=== PATIENT | male | born 1985 | race Hispanic/Latino ===

== ENCOUNTER 2017-08-18 14:27 | Emergency (ER) | payer OTHER | END 2017-08-18 15:06 | disposition home or self-care (01) | LOC: EDH 14:27 | DX: F41.9 Anxiety disorder, unspecified (principal); F14.10 Cocaine abuse, uncomplicated; F10.10 Alcohol abuse, uncomplicated; E86.0 Dehydration; Z72.0 Tobacco use ==

== ENCOUNTER 2018-04-11 07:01 | Emergency (ER) | payer SELFPAY ==
[2018-04-11] MEDS ORDERED: THIAMINE HCL 100 MG/ML 2ML VIAL ONE (07:44)
[2018-04-11] MEDS ORDERED: SODIUM CHLORIDE 0.9% 1000ML 1,000 ML IV ONE (07:44)
[2018-04-11 07:47] LABS: BASOPHILS % (AUTO) 0.2 % (0.0-5.0); EOSINOPHILS % (AUTO) 0.5 % (0.0-8.0); HEMATOCRIT 43.6 % (42-54); LYMPHOCYTES % (AUTO) 16.7 % (21.0-51.0); MEAN CORPUSCULAR HEMOGLOBIN 31.6 pg (27.0-33.0); MEAN CORPUSCULAR HGB CONC 34.5 g/dL (32.0-36.0); MEAN CORPUSCULAR VOLUME 91.7 fL (79-99); MONOCYTES % (AUTO) 6.4 % (3.0-13.0); NEUTROPHILS % (AUTO) 76.2 % (40.0-77.0); PLATELET COUNT (AUTO) 203 K/uL (130-400); RED BLOOD CELL COUNT(AUTO) 4.76 MIL/uL (4.50-6.20); RED CELL DISTRIBUTION WIDTH 13.5 % (11.0-15.5); WHITE BLOOD COUNT (AUTO) 6.4 K/uL (4.8-10.8)
[2018-04-11 08:05] LABS: INR 1.02 (0.85-1.15); PARTIAL THROMBOPLASTIN TIME 29.3 SEC (26.3-35.5); PROTHROMBIN TIME 10.7 SEC (9.6-11.6)
[2018-04-11 08:23] LABS: BILIRUBIN,URINE Negative (NEGATIVE); COLOR,URINE Dark Yellow (YELLOW); GLUCOSE, URINE (UA) Negative (NEGATIVE); KETONES,URINE 40 mg/dL (NEGATIVE); LEUKOCYTE ESTERASE ,URINE Negative (NEGATIVE); NITRATE,URINE Negative (NEGATIVE); OCCULT BLOOD,URINE Negative (NEGATIVE); PROTEIN,URINE Negative (NEGATIVE)
[2018-04-11 08:35] LABS: APPEARANCE,URINE HAZY (CLEAR)
[2018-04-11 08:37] LABS: BACTERIA,URINE Rare /HPF (None Seen); MUCUS,URINE Rare LPF (None Seen); RBC,URINE 0-1 /HPF (0-1); SQUAMOUS EPITHELIAL CELL,UR Rare /HPF (0-2); WBC,URINE 0-1 /HPF (0-1)
[2018-04-11 08:39] LABS: AMPHET/METH SCREEN,URINE NEGATIVE (NEGATIVE); BARBITURATE SCREEN, URINE NEGATIVE (NEGATIVE); BENZODIAZEPINES SCREEN,URINE NEGATIVE (NEGATIVE); CANNABINOID SCREEN,URINE POSITIVE (NEGATIVE); COCAINE SCREEN,URINE POSITIVE (NEGATIVE); OPIATE SCREEN,URINE NEGATIVE (NEGATIVE); PHENCYCLIDINE SCREEN,URINE NEGATIVE (NEGATIVE)
[2018-04-11 08:51] LABS: CARBON DIOXIDE 25 mmol/L (21-32); CHLORIDE 102 mmol/L (101-111); CREATININE 0.9 mg/dL (0.5-1.5); GLOMERULAR FILTR. RATE CALC 104 mL/min (>60); GLUCOSE,RANDOM 80 mg/dL (70-105); SODIUM SERUM 139 mmol/L (136-145); UREA NITROGEN, BLOOD 14 mg/dL (7-18)
[2018-04-11 09:04] LABS: ALANINE AMINOTRANSFERASE 23 U/L (12-78); ALBUMIN 4.3 g/dL (3.5-5.0); ALCOHOL, BLOOD < 3 mg/dL (0-10); ASPARTATE AMINOTRANSFERASE 24 U/L (10-37); BILIRUBIN,TOTAL 1.1 mg/dL (0.2-1.0); CREATINE KINASE, TOTAL 184 U/L (21-232); TOTAL PROTEIN, SERUM 7.5 g/dL (6.0-8.3)
[2018-04-11 09:06] LABS: ACETAMINOPHEN < 1 mcg/mL (10-29); SALICYLATE < 2.8 mg/dL (2.8-20.0)
== END 2018-04-11 10:16 | disposition home or self-care (01) ==
LOC: EDH 07:01
DX: F14.10 Cocaine abuse, uncomplicated (principal); R00.2 Palpitations; F12.10 Cannabis abuse, uncomplicated; F10.10 Alcohol abuse, uncomplicated; F41.9 Anxiety disorder, unspecified; Z72.0 Tobacco use; Y90.9 Presence of alcohol in blood, level not specified
CPT/HCPCS: 36415; 71045; 80053; 80305; 81001; 82550; 84484 ×2; 85025; 85610; 85730; 93005 ×2; 96365; 99284; G0480 ×2; G0481; J3411; J7030

== ENCOUNTER 2018-04-12 11:27 | Emergency (ER) | payer SELFPAY | END 2018-04-12 12:28 | disposition home or self-care (01) | LOC: EDH 11:27 | DX: R06.02 Shortness of breath (principal); T40.4X5D Adverse effect of other synthetic narcotics, subsequent encounter; F41.9 Anxiety disorder, unspecified; F14.10 Cocaine abuse, uncomplicated; Z72.0 Tobacco use | CPT/HCPCS: 99281 ==

== ENCOUNTER 2018-04-14 05:47 | Emergency (ER) | payer SELFPAY ==
[2018-04-14 06:12] LABS: APPEARANCE,URINE Clear (CLEAR); BILIRUBIN,URINE Negative (NEGATIVE); COLOR,URINE Yellow (YELLOW); GLUCOSE, URINE (UA) Negative (NEGATIVE); KETONES,URINE Negative (NEGATIVE); LEUKOCYTE ESTERASE ,URINE Negative (NEGATIVE); NITRATE,URINE Negative (NEGATIVE); OCCULT BLOOD,URINE Negative (NEGATIVE); PH,URINE 5.5 (5.0-8.0); PROTEIN,URINE Negative (NEGATIVE)
[2018-04-14 06:20] LABS: AMPHET/METH SCREEN,URINE NEGATIVE (NEGATIVE); BARBITURATE SCREEN, URINE NEGATIVE (NEGATIVE); BENZODIAZEPINES SCREEN,URINE NEGATIVE (NEGATIVE); CANNABINOID SCREEN,URINE POSITIVE (NEGATIVE); COCAINE SCREEN,URINE POSITIVE (NEGATIVE); OPIATE SCREEN,URINE NEGATIVE (NEGATIVE); PHENCYCLIDINE SCREEN,URINE NEGATIVE (NEGATIVE)
[2018-04-14 06:42] LABS: BASOPHILS % (AUTO) 0.7 % (0.0-5.0); EOSINOPHILS % (AUTO) 1.4 % (0.0-8.0); HEMATOCRIT 42.8 % (42-54); LYMPHOCYTES % (AUTO) 26.6 % (21.0-51.0); MEAN CORPUSCULAR HEMOGLOBIN 31.2 pg (27.0-33.0); MEAN CORPUSCULAR VOLUME 91.9 fL (79-99); MONOCYTES % (AUTO) 10.9 % (3.0-13.0); NEUTROPHILS % (AUTO) 60.4 % (40.0-77.0); PLATELET COUNT (AUTO) 272 K/uL (130-400); RED BLOOD CELL COUNT(AUTO) 4.66 MIL/uL (4.50-6.20); RED CELL DISTRIBUTION WIDTH 13.3 % (11.0-15.5); WHITE BLOOD COUNT (AUTO) 6.8 K/uL (4.8-10.8)
[2018-04-14 06:50] LABS: CREATININE 0.9 mg/dL (0.5-1.5); POTASSIUM 3.7 mmol/L (3.5-5.1)
[2018-04-14 06:56] LABS: ALBUMIN 4.3 g/dL (3.5-5.0); BILIRUBIN,TOTAL 0.7 mg/dL (0.2-1.0); TOTAL PROTEIN, SERUM 7.3 g/dL (6.0-8.3)
[2018-04-14] MEDS ORDERED: LORAZEPAM 0.5 MG TABLET ONE (07:39)
== END 2018-04-14 07:59 | disposition home or self-care (01) ==
LOC: EDH 05:47
DX: F41.0 Panic disorder [episodic paroxysmal anxiety] (principal); F14.10 Cocaine abuse, uncomplicated; F12.10 Cannabis abuse, uncomplicated; R06.02 Shortness of breath; Z72.0 Tobacco use
CPT/HCPCS: 36415; 71045; 80053; 80305; 81003; 82550; 84484; 85025; 93005

== ENCOUNTER 2018-04-15 08:09 | Emergency (ER) | payer SELFPAY | END 2018-04-15 09:44 | disposition home or self-care (01) | LOC: EDH 08:09 | DX: F41.9 Anxiety disorder, unspecified (principal); F14.10 Cocaine abuse, uncomplicated; F12.90 Cannabis use, unspecified, uncomplicated | CPT/HCPCS: 93005 ==

== ENCOUNTER 2018-04-16 09:52 | Emergency (ER) | payer SELFPAY ==
[2018-04-16 10:15] LABS: BASOPHILS % (AUTO) 0.4 % (0.0-5.0); EOSINOPHILS % (AUTO) 1.3 % (0.0-8.0); HEMATOCRIT 45.4 % (42-54); LYMPHOCYTES % (AUTO) 22.2 % (21.0-51.0); MEAN CORPUSCULAR HEMOGLOBIN 31.2 pg (27.0-33.0); MEAN CORPUSCULAR HGB CONC 33.7 g/dL (32.0-36.0); MEAN CORPUSCULAR VOLUME 92.6 fL (79-99); MONOCYTES % (AUTO) 8.5 % (3.0-13.0); NEUTROPHILS % (AUTO) 67.6 % (40.0-77.0); NUCLEATED RED BLOOD CELLS 0.1 % (0.0-0.19); PLATELET COUNT (AUTO) 259 K/uL (130-400); RED CELL DISTRIBUTION WIDTH 13.7 % (11.0-15.5); WHITE BLOOD COUNT (AUTO) 6.8 K/uL (4.8-10.8)
[2018-04-16 10:26] LABS: CREATININE 0.9 mg/dL (0.5-1.5); POTASSIUM 3.5 mmol/L (3.5-5.1)
[2018-04-16 10:31] LABS: ALBUMIN 4.1 g/dL (3.5-5.0); BILIRUBIN,TOTAL 0.8 mg/dL (0.2-1.0)
[2018-04-16] MEDS ORDERED: SODIUM CHLORIDE 0.9% 1000ML 1,000 ML IV ONE (10:46)
== END 2018-04-16 12:44 | disposition home or self-care (01) ==
LOC: EDH 09:52
DX: F41.0 Panic disorder [episodic paroxysmal anxiety] (principal); F14.10 Cocaine abuse, uncomplicated; F12.10 Cannabis abuse, uncomplicated; Z72.0 Tobacco use
CPT/HCPCS: 36415; 71045; 80053; 83880; 84484; 85025; 85378; 93005; 99284; J7030

== ENCOUNTER 2018-04-17 12:06 | Emergency (ER) | payer OTHER | END 2018-04-17 13:31 | disposition home or self-care (01) | LOC: EDH 12:06 | DX: F41.1 Generalized anxiety disorder (principal); F14.10 Cocaine abuse, uncomplicated; F12.90 Cannabis use, unspecified, uncomplicated; Z98.890 Other specified postprocedural states ==

== ENCOUNTER 2018-04-22 15:53 | Emergency (ER) | payer SELFPAY ==
[2018-04-22] MEDS ORDERED: HYDROXYZINE HCL 25 MG TABLET ONE (17:22)
[2018-04-22] MEDS ORDERED: ASPIRIN 325 MG TABLET ONE (17:22)
[2018-04-22 17:39] LABS: BASOPHILS % (AUTO) 0.5 % (0.0-5.0); EOSINOPHILS % (AUTO) 0.4 % (0.0-8.0); HEMATOCRIT 39.5 % (42-54); LYMPHOCYTES % (AUTO) 20.6 % (21.0-51.0); MEAN CORPUSCULAR HEMOGLOBIN 31.4 pg (27.0-33.0); MEAN CORPUSCULAR HGB CONC 34.3 g/dL (32.0-36.0); MEAN CORPUSCULAR VOLUME 91.7 fL (79-99); NEUTROPHILS % (AUTO) 69.5 % (40.0-77.0); PLATELET COUNT (AUTO) 239 K/uL (130-400); RED BLOOD CELL COUNT(AUTO) 4.31 MIL/uL (4.50-6.20); RED CELL DISTRIBUTION WIDTH 13.6 % (11.0-15.5); WHITE BLOOD COUNT (AUTO) 7.3 K/uL (4.8-10.8)
[2018-04-22 17:48] LABS: AMPHET/METH SCREEN,URINE NEGATIVE (NEGATIVE); BARBITURATE SCREEN, URINE NEGATIVE (NEGATIVE); BENZODIAZEPINES SCREEN,URINE NEGATIVE (NEGATIVE); CANNABINOID SCREEN,URINE NEGATIVE (NEGATIVE); COCAINE SCREEN,URINE POSITIVE (NEGATIVE); OPIATE SCREEN,URINE NEGATIVE (NEGATIVE); PHENCYCLIDINE SCREEN,URINE NEGATIVE (NEGATIVE)
[2018-04-22 17:54] LABS: CREATININE 0.8 mg/dL (0.5-1.5); POTASSIUM 3.9 mmol/L (3.5-5.1)
[2018-04-22 17:56] LABS: INR 1.04 (0.85-1.15); PARTIAL THROMBOPLASTIN TIME 28.1 SEC (26.3-35.5); PROTHROMBIN TIME 10.9 SEC (9.6-11.6)
[2018-04-22 18:04] LABS: ALBUMIN 4.2 g/dL (3.5-5.0); BILIRUBIN,TOTAL 0.4 mg/dL (0.2-1.0)
[2018-04-22 18:18] LABS: B-TYPE NATRIURETIC PEPTIDE 257 pg/mL (0-100)
== END 2018-04-22 19:19 | disposition home or self-care (01) ==
LOC: EDH 15:53
DX: F41.1 Generalized anxiety disorder (principal); F14.10 Cocaine abuse, uncomplicated; R07.9 Chest pain, unspecified; F12.10 Cannabis abuse, uncomplicated
CPT/HCPCS: 36415; 71045; 80053; 80305; 82550; 83874; 83880; 84484; 85025; 85610; 85730; 93005

== ENCOUNTER 2018-07-02 15:50 | Inpatient (IN) | payer SELFPAY ==
[~2018-07-02] VITALS: Ht 160 cm; Wt 51.7 kg
[2018-07-02] MEDS ORDERED: SODIUM CHLORIDE 0.9% 1000ML 1,000 ML IV ONE (16:04)
[2018-07-02 16:22] LABS: BASOPHILS % (AUTO) 0.4 % (0.0-5.0); HEMATOCRIT 42.4 % (42-54); MEAN CORPUSCULAR HEMOGLOBIN 32.6 pg (27.0-33.0); MEAN CORPUSCULAR VOLUME 93.2 fL (79-99); MONOCYTES % (AUTO) 7.1 % (3.0-13.0); NEUTROPHILS % (AUTO) 79.5 % (40.0-77.0); NUCLEATED RED BLOOD CELLS 0.1 % (0.0-0.19); PLATELET COUNT (AUTO) 196 K/uL (130-400); RED BLOOD CELL COUNT(AUTO) 4.55 MIL/uL (4.50-6.20); RED CELL DISTRIBUTION WIDTH 13.5 % (11.0-15.5); WHITE BLOOD COUNT (AUTO) 9.5 K/uL (4.8-10.8)
[2018-07-02 16:24] LABS: APPEARANCE,URINE Clear (CLEAR); BILIRUBIN,URINE Negative (NEGATIVE); COLOR,URINE Yellow (YELLOW); GLUCOSE, URINE (UA) Negative (NEGATIVE); KETONES,URINE 15 mg/dL (NEGATIVE); LEUKOCYTE ESTERASE ,URINE Negative (NEGATIVE); NITRATE,URINE Negative (NEGATIVE); OCCULT BLOOD,URINE Negative (NEGATIVE); PROTEIN,URINE Negative (NEGATIVE)
[2018-07-02 16:34] LABS: POTASSIUM 3.6 mmol/L (3.5-5.1)
[2018-07-02 16:35] LABS: INR 1.01 (0.85-1.15); PARTIAL THROMBOPLASTIN TIME 28.3 SEC (26.3-35.5); PROTHROMBIN TIME 10.6 SEC (9.6-11.6)
[2018-07-02 16:38] LABS: ALBUMIN 4.4 g/dL (3.5-5.0); TOTAL PROTEIN, SERUM 7.4 g/dL (6.0-8.3)
[2018-07-02 16:49] LABS: AMPHET/METH SCREEN,URINE NEGATIVE (NEGATIVE); BARBITURATE SCREEN, URINE NEGATIVE (NEGATIVE); BENZODIAZEPINES SCREEN,URINE NEGATIVE (NEGATIVE); CANNABINOID SCREEN,URINE POSITIVE (NEGATIVE); COCAINE SCREEN,URINE POSITIVE (NEGATIVE); OPIATE SCREEN,URINE NEGATIVE (NEGATIVE); PHENCYCLIDINE SCREEN,URINE NEGATIVE (NEGATIVE)
[2018-07-02 20:46] VITALS: BP 128/82
[2018-07-02] MEDS: METOPROLOL TARTRATE 25 MG TAB PO SCH (21:16)
[2018-07-02] MEDS: FAMOTIDINE 20MG TAB 20 MG TAB PO SCH (21:16)
[2018-07-02] MEDS: ACETAMINOPHEN 325 MG TAB PO PRN (21:19)
[2018-07-02 23:34] VITALS: BP 129/86
[2018-07-03 03:20] VITALS: BP 141/67
[2018-07-03 07:54] VITALS: BP 122/77
[2018-07-03] MEDS: ASPIRIN 325 MG TABLET PO SCH (08:23)
[2018-07-03] MEDS: METOPROLOL TARTRATE 25 MG TAB PO SCH (08:23)
[2018-07-03] MEDS: FAMOTIDINE 20MG TAB 20 MG TAB PO SCH ×2 (08:23→20:55)
[2018-07-03] MEDS: ENOXAPARIN SODIUM 40 MG/0.4 ML SYRINGE SQ SCH (08:23)
[2018-07-03] MEDS ORDERED: DILTIAZEM HCL 60 MG TABLET PO SCH (10:30)
[2018-07-03] MEDS ORDERED: ONDANSETRON HCL 4 MG/2 ML VIAL IVP PRN (10:30)
[2018-07-03 11:56] VITALS: BP 133/83
[2018-07-03 16:00] VITALS: BP 121/81
--- NOTE | 2018-07-03 19:28 | NUR ---
cm note met with patient and states resides athome alone, independent with adls and self care, ambulation. no dme. no services. pt does not have pcp, provided list of low income clinics in the area and encouraged md followup and adherance to diet and healthy living, pt states he will follwoup with clinics. also has spoken to [employer] for possible medicaid assist. no dc needs. dc plan is [place]. Addendum: 07/03/18 at 1930 by LIA GAUTAM CM Amended: Links added.
[2018-07-03 20:00] VITALS: BP 116/70
[2018-07-04] VITALS: BP 112/80
[2018-07-04 03:43] VITALS: BP 128/56
[2018-07-04 05:00] LABS: BASOPHILS % (AUTO) 0.4 % (0.0-5.0); EOSINOPHILS % (AUTO) 1.7 % (0.0-8.0); HEMATOCRIT 55.1 % (42-54); LYMPHOCYTES % (AUTO) 24.7 % (21.0-51.0); MEAN CORPUSCULAR HEMOGLOBIN 32.4 pg (27.0-33.0); MEAN CORPUSCULAR HGB CONC 34.6 g/dL (32.0-36.0); MEAN CORPUSCULAR VOLUME 93.6 fL (79-99); MONOCYTES % (AUTO) 14.7 % (3.0-13.0); NEUTROPHILS % (AUTO) 58.5 % (40.0-77.0); PLATELET COUNT (AUTO) 257 K/uL (130-400); RED BLOOD CELL COUNT(AUTO) 5.88 MIL/uL (4.50-6.20); RED CELL DISTRIBUTION WIDTH 13.6 % (11.0-15.5); WHITE BLOOD COUNT (AUTO) 9.5 K/uL (4.8-10.8)
[2018-07-04 05:14] LABS: CREATININE 1.1 mg/dL (0.5-1.5); POTASSIUM 4.4 mmol/L (3.5-5.1)
[2018-07-04 08:00] VITALS: BP 151/80
--- NOTE | 2018-07-04 08:00 | NUR ---
AM SHIFT ASSESSMENT. NO CHEST PAIN.
[2018-07-04] MEDS: DILTIAZEM HCL 60 MG TABLET PO SCH ×3 (08:43→22:51)
[2018-07-04] MEDS: FAMOTIDINE 20MG TAB 20 MG TAB PO SCH ×2 (08:44→22:51)
[2018-07-04] MEDS: ASPIRIN 325 MG TABLET PO SCH (08:44)
[2018-07-04] MEDS: ENOXAPARIN SODIUM 40 MG/0.4 ML SYRINGE SQ SCH (08:46)
[2018-07-04 12:00] VITALS: BP 114/72
[2018-07-04 16:00] VITALS: BP 120/72
--- NOTE | 2018-07-04 18:00 | NUR ---
CONTINUES WITH SINUS TACHYCARDIA, NO CHEST PAIN AND STATES DOES NOT FEEL BAD. DOES ADMIT TO BE BEING DEPRESSED AND DOES NOT FEEL LIKE ANY OF HIS FAMILY MEMBERS CARE ABOUT HIM.
[2018-07-04 19:46] VITALS: BP 113/66
[2018-07-05] VITALS (7 sets, daily range): BP systolic 82–115; BP diastolic 61–81
[2018-07-05] MEDS: DILTIAZEM HCL 60 MG TABLET PO SCH ×3 (08:23→21:37)
[2018-07-05] MEDS: FAMOTIDINE 20MG TAB 20 MG TAB PO SCH ×2 (08:23→21:36)
[2018-07-05] MEDS: ENOXAPARIN SODIUM 40 MG/0.4 ML SYRINGE SQ SCH (08:25)
[2018-07-05] MEDS: ASPIRIN 325 MG TABLET PO SCH (08:25)
[2018-07-05] MEDS: THIAMINE HCL 100 MG TABLET PO SCH ×2 (11:31→21:36)
--- NOTE | 2018-07-05 13:00 | NUR ---
SPOKE W PT RE COCAINE USE [facility] w [facility]. lives alone, does odd jobs for money- landscape work, etc. has used drugs for many years. is estranged form his family. encouraged to reconnect, go to [facility] if [facility] are inviting him. advised that he need to stop drugs- needs help to stop drugs; admits to being addict. very sad. aware his health/heart has suffered related to drug use. community resource pkt discussed Addendum: 07/05/18 at 1901 by REJI CLINTON RN CM Amended: Links added.
--- NOTE | 2018-07-05 16:58 | NUR ---
DIRECTIVES Sw met with pt and educated on directives and MPOA. Pt states he is not and has 1 minor child. Pt reports both parents still living and they would be decision makers in necessary. Pt states he would want to be resuscitated and be on life support. SW educated on directives and MPOA, pt did not wish to complete
[2018-07-05] MEDS: LORAZEPAM 2 MG/ML 1 ML VIAL IVP PRN (19:26)
[2018-07-05] MEDS ORDERED: MORPHINE SULFATE 4 MG/1ML SYG IV PRN (20:15)
[2018-07-05] MEDS ORDERED: MORPHINE SULFATE 2 MG/ML 1ML SYG IVP PRN (20:15)
[2018-07-05] MEDS: NITROGLYCERIN 1GM/1 INCH PACKET TD SCH (21:38)
[2018-07-06] VITALS: BP 103/62
[2018-07-06 03:59] VITALS: BP 104/70
[2018-07-06] MEDS: ACETAMINOPHEN 325 MG TAB PO PRN (06:09)
[2018-07-06] MEDS: NITROGLYCERIN 1GM/1 INCH PACKET TD SCH (06:10)
[2018-07-06 06:16] LABS: BASOPHILS % (AUTO) 0.5 % (0.0-5.0); EOSINOPHILS % (AUTO) 1.4 % (0.0-8.0); HEMATOCRIT 44.9 % (42-54); LYMPHOCYTES % (AUTO) 22.2 % (21.0-51.0); MEAN CORPUSCULAR HEMOGLOBIN 31.6 pg (27.0-33.0); MEAN CORPUSCULAR HGB CONC 34.1 g/dL (32.0-36.0); MEAN CORPUSCULAR VOLUME 92.5 fL (79-99); NEUTROPHILS % (AUTO) 63.9 % (40.0-77.0); PLATELET COUNT (AUTO) 232 K/uL (130-400); RED BLOOD CELL COUNT(AUTO) 4.85 MIL/uL (4.50-6.20); RED CELL DISTRIBUTION WIDTH 13.7 % (11.0-15.5); WHITE BLOOD COUNT (AUTO) 9.7 K/uL (4.8-10.8)
[2018-07-06 06:36] LABS: POTASSIUM 3.9 mmol/L (3.5-5.1)
[2018-07-06 08:00] VITALS: BP 120/92
[2018-07-06] MEDS: THIAMINE HCL 100 MG TABLET PO SCH ×2 (08:32→21:31)
[2018-07-06] MEDS: ASPIRIN 81MG TAB.CHEW PO SCH (08:32)
[2018-07-06] MEDS: LOSARTAN 50 MG TABLET PO SCH (08:32)
[2018-07-06] MEDS: FAMOTIDINE 20MG TAB 20 MG TAB PO SCH ×2 (08:32→21:31)
[2018-07-06] MEDS: FUROSEMIDE 40 MG TABLET PO SCH (08:32)
[2018-07-06] MEDS: ISOSORBIDE MONO 30MG TAB SR PO SCH (08:33)
[2018-07-06] MEDS: ENOXAPARIN SODIUM 40 MG/0.4 ML SYRINGE SQ SCH (08:34)
[2018-07-06 12:00] VITALS: BP 123/65
[2018-07-06] MEDS: LORAZEPAM 2 MG/ML 1 ML VIAL IVP PRN (14:56)
[2018-07-06 16:00] VITALS: BP_SYST 124; BP_SYST 99; BP_DIAS 55; BP_DIAS 57
[2018-07-06 20:00] VITALS: BP 101/68
[2018-07-07] VITALS: BP 117/72
[2018-07-07 03:55] VITALS: BP 110/74
[2018-07-07 05:18] LABS: BASOPHILS % (AUTO) 0.5 % (0.0-5.0); EOSINOPHILS % (AUTO) 2.4 % (0.0-8.0); HEMATOCRIT 46.1 % (42-54); LYMPHOCYTES % (AUTO) 29.1 % (21.0-51.0); MEAN CORPUSCULAR HEMOGLOBIN 32.5 pg (27.0-33.0); MEAN CORPUSCULAR HGB CONC 34.9 g/dL (32.0-36.0); MEAN CORPUSCULAR VOLUME 93.2 fL (79-99); MONOCYTES % (AUTO) 13.5 % (3.0-13.0); NEUTROPHILS % (AUTO) 54.5 % (40.0-77.0); NUCLEATED RED BLOOD CELLS 0.1 % (0.0-0.19); PLATELET COUNT (AUTO) 198 K/uL (130-400); RED BLOOD CELL COUNT(AUTO) 4.95 MIL/uL (4.50-6.20); RED CELL DISTRIBUTION WIDTH 13.7 % (11.0-15.5); WHITE BLOOD COUNT (AUTO) 6.7 K/uL (4.8-10.8)
[2018-07-07 05:35] LABS: CREATININE 0.9 mg/dL (0.5-1.5); POTASSIUM 3.9 mmol/L (3.5-5.1)
[2018-07-07] MEDS ORDERED: Isosorbide Mono 30MG Tab Sr PO (07:07)
[2018-07-07] MEDS ORDERED: FURO40TA7 PO (07:07)
[2018-07-07] MEDS ORDERED: LOSA50TA2 PO (07:07)
[2018-07-07 08:00] VITALS: BP 115/68
[2018-07-07] MEDS: ASPIRIN 81MG TAB.CHEW PO SCH (09:48)
[2018-07-07] MEDS: ENOXAPARIN SODIUM 40 MG/0.4 ML SYRINGE SQ SCH (09:48)
[2018-07-07] MEDS: ISOSORBIDE MONO 30MG TAB SR PO SCH (09:48)
[2018-07-07] MEDS: FAMOTIDINE 20MG TAB 20 MG TAB PO SCH (09:49)
[2018-07-07] MEDS: FUROSEMIDE 40 MG TABLET PO SCH (09:49)
[2018-07-07] MEDS: LOSARTAN 50 MG TABLET PO SCH (09:49)
[2018-07-07] MEDS: THIAMINE HCL 100 MG TABLET PO SCH (09:51)
[2018-07-07 12:00] VITALS: BP 107/70
[2018-07-07] MEDS ORDERED: METOPROLOL TARTRATE 1 MG/ML 5ML VIAL IV SCH (12:00)
[2018-07-07 16:00] VITALS: BP 109/50
--- NOTE | 2018-07-07 16:55 | NUR ---
SPOKE TO RUBIAN MELENDEZ, HEART RATE 140, WILL HOLD DISCHARGE AND GIVE PT TYLENOL Q6 PRN 650 FOR HEADACHE
[2018-07-07] MEDS ORDERED: ACETAMINOPHEN 325 MG TAB PO PRN (17:00)
[2018-07-07] MEDS: ACETAMINOPHEN 325 MG TAB PO PRN (17:01)
--- NOTE | 2018-07-07 17:13 | NUR ---
SPOKE TO RUBINA, WILL DISCHARGE PT, PT HEART RATE IS GOING DOWN AND NOW 120, PT HAS A BASELINE OF 120'S WILL DISCHARGE
== END 2018-07-07 18:09 | disposition home or self-care (01) | DRG 204 ==
LOC: EDH 15:50 → OBSVTOIN 15:51 → EDHIP 15:51 → 3AH 20:34
PROVIDERS: ADMIT Hospitalist; ATTEND Hospitalist
DX: R06.02 Shortness of breath (principal); I42.0 Dilated cardiomyopathy; R00.0 Tachycardia, unspecified; I10 Essential (primary) hypertension; F14.10 Cocaine abuse, uncomplicated; F17.210 Nicotine dependence, cigarettes, uncomplicated; F12.90 Cannabis use, unspecified, uncomplicated; I25.5 Ischemic cardiomyopathy; I49.3 Ventricular premature depolarization; T40.5X5A Adverse effect of cocaine, initial encounter; Y92.89 Other specified places as the place of occurrence of the external cause; Z91.14 Patient's other noncompliance with medication regimen; Z86.61 Personal history of infections of the central nervous system
CPT/HCPCS: 36415; 71045; 80048; 80053; 80305; 81003; 83880; 84484; 85025; 85610; 85730; 93005; 93306; G0378; J1650; J2060; J3490; J7030

== ENCOUNTER 2018-08-08 17:58 | Emergency (ER) | payer SELFPAY ==
[~2018-08-08 17:58] MED LIST: FURO40TA7 PO; Isosorbide Mono 30MG Tab Sr PO; LOSA50TA2 PO
[2018-08-08] MEDS ORDERED: TETANUS/DIPHTHERIA TOXOID [ADULT] 0.5 ML VIAL IM ONE (18:53)
== END 2018-08-08 19:04 | disposition home or self-care (01) ==
LOC: EDH 17:58
DX: S61.411A Laceration without foreign body of right hand, initial encounter (principal); F41.9 Anxiety disorder, unspecified; F14.10 Cocaine abuse, uncomplicated; F12.10 Cannabis abuse, uncomplicated; Z72.0 Tobacco use; W25.XXXA Contact with sharp glass, initial encounter; Y93.89 Activity, other specified; Y92.098 Other place in other non-institutional residence as the place of occurrence of the external cause; Y99.8 Other external cause status
CPT/HCPCS: 90714; 99281

== ENCOUNTER 2019-01-24 01:55 | Emergency (ER) | payer OTHER ==
[2019-01-24] MEDS ORDERED: HALOPERIDOL LACTATE 5 MG/ML VIAL ONE (02:36)
[2019-01-24] MEDS ORDERED: DiphenhydrAMINE HCL 50 MG/ML VIAL ONE (02:36)
[2019-01-24] MEDS ORDERED: LORAZEPAM 2 MG/ML 1 ML VIAL ONE (02:37)
[2019-01-24 03:15] LABS: AMPHET/METH SCREEN,URINE NEGATIVE (NEGATIVE); BARBITURATE SCREEN, URINE NEGATIVE (NEGATIVE); BENZODIAZEPINES SCREEN,URINE NEGATIVE (NEGATIVE); CANNABINOID SCREEN,URINE NEGATIVE (NEGATIVE); COCAINE SCREEN,URINE POSITIVE (NEGATIVE); OPIATE SCREEN,URINE NEGATIVE (NEGATIVE); PHENCYCLIDINE SCREEN,URINE NEGATIVE (NEGATIVE)
[2019-01-24 03:17] LABS: BASOPHILS % (AUTO) 0.5 % (0.0-5.0); CARBON DIOXIDE 26 mmol/L (21-32); CHLORIDE 105 mmol/L (101-111); GLOMERULAR FILTR. RATE CALC 91 mL/min (>60); GLUCOSE,RANDOM 100 mg/dL (70-105); HEMATOCRIT 45.1 % (42-54); LYMPHOCYTES % (AUTO) 30.6 % (21.0-51.0); MEAN CORPUSCULAR HEMOGLOBIN 31.1 pg (27.0-33.0); MEAN CORPUSCULAR HGB CONC 34.6 g/dL (32.0-36.0); MEAN CORPUSCULAR VOLUME 89.8 fL (79-99); MONOCYTES % (AUTO) 8.8 % (3.0-13.0); PLATELET COUNT (AUTO) 246 K/uL (130-400); POTASSIUM 3.8 mmol/L (3.5-5.1); RED BLOOD CELL COUNT(AUTO) 5.02 MIL/uL (4.50-6.20); RED CELL DISTRIBUTION WIDTH 13.2 % (11.0-15.5); SODIUM SERUM 144 mmol/L (136-145); UREA NITROGEN, BLOOD 13 mg/dL (7-18); WHITE BLOOD COUNT (AUTO) 7.3 K/uL (4.8-10.8)
[2019-01-24 03:22] LABS: ALANINE AMINOTRANSFERASE 20 U/L (12-78); ALBUMIN 4.6 g/dL (3.5-5.0); ASPARTATE AMINOTRANSFERASE 22 U/L (10-37); BILIRUBIN,TOTAL 0.4 mg/dL (0.2-1.0); TOTAL PROTEIN, SERUM 7.7 g/dL (6.0-8.3)
[2019-01-24 03:29] LABS: ACETAMINOPHEN < 1 mcg/mL (10-29); SALICYLATE < 2.8 mg/dL (2.8-20.0)
== END 2019-01-24 05:24 | disposition home or self-care (01) ==
LOC: EDH 01:55
DX: S60.519A Abrasion of unspecified hand, initial encounter (principal); F14.10 Cocaine abuse, uncomplicated; F41.0 Panic disorder [episodic paroxysmal anxiety]; F41.9 Anxiety disorder, unspecified; F12.10 Cannabis abuse, uncomplicated; X58.XXXA Exposure to other specified factors, initial encounter; Y93.89 Activity, other specified; Y92.89 Other specified places as the place of occurrence of the external cause; Y99.8 Other external cause status
CPT/HCPCS: 36415; 73130 ×2; 80053; 80305; 85025; 96372 ×3; 99285; G0480; G0481; J1200; J1630; J2060

== ENCOUNTER 2019-10-30 16:43 | Emergency (ER) | payer SELFPAY ==
[2019-10-30 17:09] LABS: BASOPHILS % (AUTO) 0.4 % (0.0-5.0); EOSINOPHILS % (AUTO) 0.4 % (0.0-8.0); HEMATOCRIT 46.6 % (42-54); LYMPHOCYTES % (AUTO) 13.7 % (21.0-51.0); MEAN CORPUSCULAR HEMOGLOBIN 32.1 pg (27.0-33.0); MEAN CORPUSCULAR VOLUME 91.9 fL (79-99); MONOCYTES % (AUTO) 9.6 % (3.0-13.0); NEUTROPHILS % (AUTO) 75.6 % (40.0-77.0); PLATELET COUNT (AUTO) 259 K/uL (130-400); RED BLOOD CELL COUNT(AUTO) 5.07 MIL/uL (4.50-6.20); RED CELL DISTRIBUTION WIDTH 13.6 % (11.0-15.5); WHITE BLOOD COUNT (AUTO) 9.9 K/uL (4.8-10.8)
[2019-10-30 17:12] LABS: POTASSIUM 4.1 mmol/L (3.5-5.1)
[2019-10-30 17:17] LABS: ALBUMIN 4.4 g/dL (3.5-5.0); BILIRUBIN,TOTAL 1.2 mg/dL (0.2-1.0); TOTAL PROTEIN, SERUM 7.8 g/dL (6.0-8.3)
[2019-10-30] MEDS ORDERED: DiphenhydrAMINE HCL 50 MG/ML VIAL ONE (17:30)
[2019-10-30 18:05] LABS: APPEARANCE,URINE Clear (CLEAR); BILIRUBIN,URINE Negative (NEGATIVE); COLOR,URINE Dark Yellow (YELLOW); GLUCOSE, URINE (UA) Negative (NEGATIVE); KETONES,URINE 40 mg/dL (NEGATIVE); LEUKOCYTE ESTERASE ,URINE Negative (NEGATIVE); NITRATE,URINE Negative (NEGATIVE); OCCULT BLOOD,URINE Negative (NEGATIVE); PROTEIN,URINE Negative (NEGATIVE)
[2019-10-30 18:13] LABS: AMPHET/METH SCREEN,URINE NEGATIVE (NEGATIVE); BARBITURATE SCREEN, URINE NEGATIVE (NEGATIVE); BENZODIAZEPINES SCREEN,URINE NEGATIVE (NEGATIVE); CANNABINOID SCREEN,URINE POSITIVE (NEGATIVE); COCAINE SCREEN,URINE POSITIVE (NEGATIVE); OPIATE SCREEN,URINE NEGATIVE (NEGATIVE); PHENCYCLIDINE SCREEN,URINE NEGATIVE (NEGATIVE)
[2019-10-30 18:25] LABS: BACTERIA,URINE None Seen /HPF (None Seen); MUCUS,URINE Few LPF (None Seen); RBC,URINE 0-1 /HPF (0-1); SQUAMOUS EPITHELIAL CELL,UR 0-2 /HPF (0-2); WBC,URINE 0-1 /HPF (0-1)
== END 2019-10-30 20:54 | disposition home or self-care (01) ==
LOC: EDH 16:43
DX: R07.89 Other chest pain (principal); F12.10 Cannabis abuse, uncomplicated; F14.10 Cocaine abuse, uncomplicated; F41.9 Anxiety disorder, unspecified
CPT/HCPCS: 36415; 71045; 80053; 80305; 81001; 82550; 84484 ×2; 85025; 93005 ×2; 96361; 96374; 99285; J1200

== ENCOUNTER 2019-11-01 10:33 | Emergency (ER) | payer SELFPAY ==
[2019-11-01] MEDS ORDERED: SODIUM CHLORIDE 0.9% 1000ML 1,000 ML IV ONE ×2 (10:34→15:34)
[2019-11-01 11:22] LABS: BASOPHILS % (AUTO) 0.4 % (0.0-5.0); EOSINOPHILS % (AUTO) 0.6 % (0.0-8.0); HEMATOCRIT 45.7 % (42-54); LYMPHOCYTES % (AUTO) 11.3 % (21.0-51.0); MEAN CORPUSCULAR HEMOGLOBIN 31.9 pg (27.0-33.0); MONOCYTES % (AUTO) 9.2 % (3.0-13.0); NEUTROPHILS % (AUTO) 78.3 % (40.0-77.0); PLATELET COUNT (AUTO) 258 K/uL (130-400); RED BLOOD CELL COUNT(AUTO) 5.02 MIL/uL (4.50-6.20); RED CELL DISTRIBUTION WIDTH 13.5 % (11.0-15.5)
[2019-11-01 11:30] LABS: POTASSIUM 3.8 mmol/L (3.5-5.1)
[2019-11-01 11:38] LABS: ALBUMIN 4.5 g/dL (3.5-5.0); BILIRUBIN,TOTAL 0.5 mg/dL (0.2-1.0); TOTAL PROTEIN, SERUM 7.8 g/dL (6.0-8.3)
[2019-11-01] MEDS ORDERED: LORAZEPAM 1 MG TABLET ONE (12:15)
[2019-11-01] MEDS ORDERED: ACETAMINOPHEN 325 MG TAB ONE (12:36)
[2019-11-01] MEDS ORDERED: IOHEXOL-350 75 ML VIAL IV ONE (15:54)
[2019-11-01 16:38] LABS: AMPHET/METH SCREEN,URINE NEGATIVE (NEGATIVE); BARBITURATE SCREEN, URINE NEGATIVE (NEGATIVE); BENZODIAZEPINES SCREEN,URINE NEGATIVE (NEGATIVE); CANNABINOID SCREEN,URINE POSITIVE (NEGATIVE); COCAINE SCREEN,URINE POSITIVE (NEGATIVE); OPIATE SCREEN,URINE NEGATIVE (NEGATIVE); PHENCYCLIDINE SCREEN,URINE NEGATIVE (NEGATIVE)
[2019-11-01 21:01] LABS: APPEARANCE,URINE Clear (CLEAR); BILIRUBIN,URINE Negative (NEGATIVE); COLOR,URINE Yellow (YELLOW); GLUCOSE, URINE (UA) Negative (NEGATIVE); KETONES,URINE Negative (NEGATIVE); LEUKOCYTE ESTERASE ,URINE Negative (NEGATIVE); NITRATE,URINE Negative (NEGATIVE); OCCULT BLOOD,URINE Negative (NEGATIVE); PROTEIN,URINE Negative (NEGATIVE)
== END 2019-11-01 19:38 | disposition home or self-care (01) ==
LOC: EDH 10:33
DX: U07.1 COVID-19 (principal); R07.89 Other chest pain; F14.10 Cocaine abuse, uncomplicated; F41.9 Anxiety disorder, unspecified; Z72.0 Tobacco use
CPT/HCPCS: 36415; 71046; 71275; 80053; 80305; 81003; 82550; 82948; 83605; 83690; 84443; 84484 ×2; 85025; 85378; 87426; 93005; 96360; 96361 ×2; 99285; J7030 ×2; Q9967; U0003

== ENCOUNTER 2019-11-03 11:08 | Emergency (ER) | payer SELFPAY ==
[2019-11-03] MEDS ORDERED: ASPIRIN 81MG TAB.CHEW ONE (11:18)
[2019-11-03] MEDS ORDERED: NITROGLYCERIN 1GM/1 INCH PACKET TD ONE (11:19)
[2019-11-03] MEDS ORDERED: ONDANSETRON HCL 4 MG/2 ML VIAL ONE (11:19)
[2019-11-03 11:25] LABS: BASOPHILS % (AUTO) 0.5 % (0.0-5.0); EOSINOPHILS % (AUTO) 1.2 % (0.0-8.0); HEMATOCRIT 46.2 % (42-54); LYMPHOCYTES % (AUTO) 13.1 % (21.0-51.0); MEAN CORPUSCULAR HEMOGLOBIN 31.4 pg (27.0-33.0); MEAN CORPUSCULAR HGB CONC 34.2 g/dL (32.0-36.0); MEAN CORPUSCULAR VOLUME 91.8 fL (79-99); MONOCYTES % (AUTO) 7.4 % (3.0-13.0); NEUTROPHILS % (AUTO) 77.5 % (40.0-77.0); PLATELET COUNT (AUTO) 219 K/uL (130-400); RED BLOOD CELL COUNT(AUTO) 5.03 MIL/uL (4.50-6.20); RED CELL DISTRIBUTION WIDTH 13.4 % (11.0-15.5); WHITE BLOOD COUNT (AUTO) 11.3 K/uL (4.8-10.8)
[2019-11-03 11:33] LABS: INR 0.96 (0.85-1.15); PARTIAL THROMBOPLASTIN TIME 25.6 SEC (26.3-35.5); PROTHROMBIN TIME 10.4 SEC (9.6-11.6)
[2019-11-03 11:39] LABS: ALBUMIN 4.2 g/dL (3.5-5.0); BILIRUBIN,TOTAL 0.6 mg/dL (0.2-1.0); CREATININE 1.2 mg/dL (0.5-1.5); POTASSIUM 3.5 mmol/L (3.5-5.1); TOTAL PROTEIN, SERUM 7.6 g/dL (6.0-8.3)
[2019-11-03] MEDS ORDERED: SODIUM CHLORIDE 0.9% 1000ML 1,000 ML IV ONE (11:41)
[2019-11-03] MEDS ORDERED: HYDROXYZINE HCL 25 MG TABLET PO SCH (13:15)
[2019-11-03 13:43] LABS: AMPHET/METH SCREEN,URINE NEGATIVE (NEGATIVE); BARBITURATE SCREEN, URINE NEGATIVE (NEGATIVE); BENZODIAZEPINES SCREEN,URINE NEGATIVE (NEGATIVE); CANNABINOID SCREEN,URINE POSITIVE (NEGATIVE); COCAINE SCREEN,URINE POSITIVE (NEGATIVE); OPIATE SCREEN,URINE NEGATIVE (NEGATIVE); PHENCYCLIDINE SCREEN,URINE NEGATIVE (NEGATIVE)
[2019-11-03] MEDS ORDERED: HYDROXYZINE HCL 25 MG TABLET ONE (14:11)
[2019-11-03] MEDS ORDERED: ACETAMINOPHEN EXTRA STRENGTH 500 MG TABLET ONE (14:15)
== END 2019-11-03 15:16 | disposition home or self-care (01) ==
LOC: EDH 11:08
DX: F41.1 Generalized anxiety disorder (principal); R07.89 Other chest pain; F14.10 Cocaine abuse, uncomplicated; F12.10 Cannabis abuse, uncomplicated; R11.10 Vomiting, unspecified
CPT/HCPCS: 36415; 71045; 80053; 80305; 82550; 84484 ×2; 85025; 85610; 85730; 93005 ×2; 96361; 96374; 99285; J2405; J7030

== ENCOUNTER 2020-11-07 15:18 | Emergency (ER) | payer OTHER, SELFPAY ==
[~2020-11-07] VITALS: Ht 160 cm; Wt 66.7 kg
[2020-11-07 16:52] LABS: BASOPHILS % (AUTO) 0.3 % (0.0-5.0); EOSINOPHILS % (AUTO) 2.7 % (0.0-8.0); HEMATOCRIT 45.2 % (42-54); LYMPHOCYTES % (AUTO) 14.6 % (21.0-51.0); MEAN CORPUSCULAR HEMOGLOBIN 31.2 pg (27.0-33.0); MEAN CORPUSCULAR HGB CONC 34.5 g/dL (32.0-36.0); MEAN CORPUSCULAR VOLUME 90.4 fL (79-99); MONOCYTES % (AUTO) 7.9 % (3.0-13.0); NEUTROPHILS % (AUTO) 74.2 % (40.0-77.0); PLATELET COUNT (AUTO) 261 K/uL (130-400); RED CELL DISTRIBUTION WIDTH 13.2 % (11.0-15.5); WHITE BLOOD COUNT (AUTO) 9.3 K/uL (4.8-10.8)
[2020-11-07 17:08] LABS: CREATININE 0.8 mg/dL (0.5-1.5)
[2020-11-07 17:12] LABS: ALBUMIN 4.5 g/dL (3.5-5.0); BILIRUBIN,TOTAL 0.9 mg/dL (0.2-1.0); TOTAL PROTEIN, SERUM 7.7 g/dL (6.0-8.3)
[2020-11-07 17:32] LABS: APPEARANCE,URINE Clear (CLEAR); BILIRUBIN,URINE Negative (NEGATIVE); COLOR,URINE Yellow (YELLOW); GLUCOSE, URINE (UA) Negative (NEGATIVE); KETONES,URINE Trace mg/dL (NEGATIVE); LEUKOCYTE ESTERASE ,URINE Negative (NEGATIVE); NITRATE,URINE Negative (NEGATIVE); OCCULT BLOOD,URINE Negative (NEGATIVE); PH,URINE 5.5 (5.0-8.0); PROTEIN,URINE Negative (NEGATIVE)
[2020-11-07 17:41] LABS: AMPHET/METH SCREEN,URINE NEGATIVE (NEGATIVE); BARBITURATE SCREEN, URINE NEGATIVE (NEGATIVE); BENZODIAZEPINES SCREEN,URINE NEGATIVE (NEGATIVE); CANNABINOID SCREEN,URINE NEGATIVE (NEGATIVE); COCAINE SCREEN,URINE POSITIVE (NEGATIVE); OPIATE SCREEN,URINE NEGATIVE (NEGATIVE); PHENCYCLIDINE SCREEN,URINE NEGATIVE (NEGATIVE)
[2020-11-07 17:48] LABS: BACTERIA,URINE Rare /HPF (None Seen); RBC,URINE None Seen /HPF (0-1); SQUAMOUS EPITHELIAL CELL,UR 0-2 /HPF (0-2); WBC,URINE 0-1 /HPF (0-1)
[2020-11-07] MEDS ORDERED: BISA10SU61 RC (19:14)
[2020-11-07] MEDS ORDERED: PSYL3.4P8 PO (19:14)
[2020-11-07] MEDS ORDERED: DICY20TA2 PO (19:15)
[2020-11-07] MEDS ORDERED: DICYCLOMINE 20MG (10MG/ML) AMP IM ONE (19:23)
[2020-11-07] MEDS ORDERED: KETOROLAC 30MG VIAL (30MG/ML) ONE (19:23)
[2020-11-07] MEDS ORDERED: KETOROLAC 30MG VIAL (30MG/ML) IM ONE (19:30)
[2020-11-07] MEDS ORDERED: DICYCLOMINE 20MG (10MG/ML) AMP IM STA (19:33)
[2020-11-07 19:44] VITALS: BP 119/75
== END 2020-11-07 19:44 | disposition home or self-care (01) ==
LOC: EDH 15:18
DX: K59.00 Constipation, unspecified (principal); Z79.1 Long term (current) use of non-steroidal anti-inflammatories (NSAID); Z79.899 Other long term (current) drug therapy
CPT/HCPCS: 36415; 74018; 80053; 80305; 81001; 83690; 85025; 96372 ×2; 99284; J0500; J1885

== ENCOUNTER 2020-11-12 09:42 | Emergency (ER) | payer OTHER, SELFPAY ==
[~2020-11-12] VITALS: Ht 160 cm; Wt 63.5 kg
[~2020-11-12 09:42] MED LIST changes: +BISA10SU61 RC; +DICY20TA2 PO; +PSYL3.4P8 PO
[2020-11-12 09:58] VITALS: BP 147/87
[2020-11-12] MEDS ORDERED: PSYL660P17 PO (12:16)
[2020-11-12] MEDS ORDERED: DICY20TA2 PO (12:16)
== END 2020-11-12 12:37 | disposition home or self-care (01) ==
LOC: EDH 09:42
DX: R10.32 Left lower quadrant pain (principal); F41.9 Anxiety disorder, unspecified; Z79.899 Other long term (current) drug therapy

== ENCOUNTER 2022-10-21 15:51 | Emergency (ER) | payer OTHER, SELFPAY ==
[~2022-10-21] VITALS: Ht 162.6 cm; Wt 59.0 kg
[~2022-10-21 15:51] MED LIST changes: +LOSA-418 PO; -LOSA50TA2 PO; +PSYL660P17 PO
[2022-10-21] MEDS ORDERED: LACT10SO5 PO (16:46)
[2022-10-21] MEDS ORDERED: LACTULOSE 20 GM/30 ML UDCUP PO ONE (17:00)
[2022-10-21 17:06] VITALS: BP 129/87; PULSE 101; RESP 16; O2SAT 98
== END 2022-10-21 17:08 | disposition home or self-care (01) ==
LOC: EDH 15:51
DX: K59.00 Constipation, unspecified (principal); I10 Essential (primary) hypertension; F17.200 Nicotine dependence, unspecified, uncomplicated; Z79.899 Other long term (current) drug therapy; Z98.890 Other specified postprocedural states
CPT/HCPCS: 74018

== ENCOUNTER 2022-10-23 11:42 | Emergency (ER) | payer OTHER ==
[~2022-10-23] VITALS: Ht 162.6 cm; Wt 65.8 kg
[~2022-10-23 11:42] MED LIST changes: +LACT10SO5 PO
[2022-10-23 11:48] VITALS: BP 132/91; PULSE 110; RESP 20
[2022-10-23] MEDS ORDERED: LACTATED RINGERS 1000ML 1,000 ML IV ONE (12:00)
[2022-10-23 12:33] LABS: BASOPHILS # (AUTO) 0.05 K/uL (0.00-0.20); BASOPHILS % (AUTO) 0.5 % (0.0-5.0); HEMATOCRIT 48.6 % (42-54); IMMATURE GRANULOCYTE ABSOLUTE 0.02 K/uL (0-1); LYMPHOCYTES # (AUTO) 1.8 K/uL (1.0-4.8); LYMPHOCYTES % (AUTO) 19.1 % (21.0-51.0); MEAN CORPUSCULAR VOLUME 88.5 fL (79-99); MONOCYTES # (AUTO) 1.2 K/uL (0.1-1.0); MONOCYTES % (AUTO) 12.8 % (3.0-13.0); NEUTROPHILS # (AUTO) 6.4 K/uL (1.8-7.7); NEUTROPHILS % (AUTO) 66.4 % (40.0-77.0); PLATELET COUNT (AUTO) 254 K/uL (130-400); RED BLOOD CELL COUNT(AUTO) 5.49 MIL/uL (4.50-6.20); RED CELL DISTRIBUTION WIDTH 12.7 % (11.0-15.5); WHITE BLOOD COUNT (AUTO) 9.6 K/uL (4.8-10.8)
[2022-10-23 12:47] LABS: CREATININE 0.8 mg/dL (0.5-1.5); POTASSIUM 3.6 mmol/L (3.5-5.1)
[2022-10-23 13:03] LABS: BILIRUBIN,TOTAL 1.1 mg/dL (0.2-1.0); TOTAL PROTEIN, SERUM 8.3 g/dL (6.0-8.3)
[2022-10-23 13:41] LABS: APPEARANCE,URINE CLOUDY (CLEAR); BILIRUBIN,URINE 0.5 mg/dL (NEGATIVE); COLOR,URINE YELLOW (YELLOW); GLUCOSE, URINE (UA) NEGATIVE (NEGATIVE); KETONES,URINE 20 mg/dL (NEGATIVE); LEUKOCYTE ESTERASE ,URINE NEGATIVE Leu/uL (NEGATIVE); NITRATE,URINE NEGATIVE (NEGATIVE); OCCULT BLOOD,URINE SMALL (NEGATIVE); PH,URINE 5.5 (5.0-8.0); PROTEIN,URINE 100 mg/dL (NEGATIVE); UROBILINOGEN,URINE 3 mg/dL (0.2-1.0)
[2022-10-23 13:58] LABS: ADD UA MICROSCOPIC YES
[2022-10-23 14:01] LABS: SQUAMOUS EPITHELIAL CELL,UR RARE /HPF (0-2); WBC,URINE 0-1 /HPF (0-1)
[2022-10-23 14:18] LABS: AMPHET/METH SCREEN,URINE NEGATIVE (NEGATIVE); BARBITURATE SCREEN, URINE NEGATIVE (NEGATIVE); BENZODIAZEPINES SCREEN,URINE NEGATIVE (NEGATIVE); CANNABINOID SCREEN,URINE POSITIVE (NEGATIVE); COCAINE SCREEN,URINE POSITIVE (NEGATIVE); OPIATE SCREEN,URINE NEGATIVE (NEGATIVE); PHENCYCLIDINE SCREEN,URINE NEGATIVE (NEGATIVE)
== END 2022-10-23 15:01 | disposition home or self-care (01) ==
LOC: EDH 11:42
DX: F14.10 Cocaine abuse, uncomplicated (principal); E86.9 Volume depletion, unspecified; R53.1 Weakness; F17.200 Nicotine dependence, unspecified, uncomplicated; Z79.899 Other long term (current) drug therapy; Z98.890 Other specified postprocedural states
CPT/HCPCS: 99284; 82550; 84484; 80053; 80305; 85025; 36415; 93005; 81001; J7120

== ENCOUNTER 2023-06-16 01:04 | Inpatient (IN) | payer OTHER ==
[~2023-06-16] VITALS: Ht 177.8 cm; Wt 58.1 kg
[2023-06-16 01:44] LABS: BASOPHILS # (AUTO) 0.04 K/uL (0.00-0.20); BASOPHILS % (AUTO) 0.3 % (0.0-5.0); EOSINOPHILS # (AUTO) 0.04 K/uL (0.00-0.70); EOSINOPHILS % (AUTO) 0.3 % (0.0-8.0); HEMATOCRIT 40.5 % (42-54); IMMATURE GRANULOCYTE ABSOLUTE 0.07 K/uL (0-1); LYMPHOCYTES # (AUTO) 2.1 K/uL (1.0-4.8); LYMPHOCYTES % (AUTO) 17.9 % (21.0-51.0); MEAN CORPUSCULAR HEMOGLOBIN 32.3 pg (27.0-33.0); MEAN CORPUSCULAR HGB CONC 34.8 g/dL (32.0-36.0); MEAN CORPUSCULAR VOLUME 92.7 fL (79-99); MONOCYTES # (AUTO) 1.4 K/uL (0.1-1.0); MONOCYTES % (AUTO) 12.3 % (3.0-13.0); NEUTROPHILS % (AUTO) 68.6 % (40.0-77.0); PLATELET COUNT (AUTO) 266 K/uL (130-400); RED BLOOD CELL COUNT(AUTO) 4.37 MIL/uL (4.50-6.20); RED CELL DISTRIBUTION WIDTH 13.4 % (11.0-15.5); WHITE BLOOD COUNT (AUTO) 11.7 K/uL (4.8-10.8)
[2023-06-16 01:52] LABS: CREATININE 1.2 mg/dL (0.5-1.3); POTASSIUM 3.7 mmol/L (3.5-5.1)
[2023-06-16 01:57] LABS: BILIRUBIN,TOTAL 1.4 mg/dL (0.2-1.0); TOTAL PROTEIN, SERUM 6.6 g/dL (6.0-8.3)
[2023-06-16] MEDS: PANTOPRAZOLE 40 MG/VIAL IVP ONE (02:44)
[2023-06-16] MEDS: MAG/ALUM/SIMETH 30 ML UDCUP PO ONE (02:44)
[2023-06-16] MEDS: ONDANSETRON 4MG INJ IVP ONE (02:44)
[2023-06-16] MEDS: LIDOCAINE HCL 2% VISCOUS 15 ML UDCUP PO ONE (02:44)
[2023-06-16] MEDS: LACTATED RINGERS 1000ML 1,000 ML IV ONE (02:45)
[2023-06-16] MEDS: ASPIRIN 325MG TAB PO ONE (05:12)
[2023-06-16 05:36] LABS: AMPHET/METH SCREEN,URINE NEGATIVE (NEGATIVE); BARBITURATE SCREEN, URINE NEGATIVE (NEGATIVE); BENZODIAZEPINES SCREEN,URINE NEGATIVE (NEGATIVE); CANNABINOID SCREEN,URINE NEGATIVE (NEGATIVE); COCAINE SCREEN,URINE POSITIVE (NEGATIVE); OPIATE SCREEN,URINE NEGATIVE (NEGATIVE); PHENCYCLIDINE SCREEN,URINE NEGATIVE (NEGATIVE)
[2023-06-16] MEDS ORDERED: MORPHINE 2 MG SYG IVP PRN (08:00)
[2023-06-16] MEDS ORDERED: FAMOTIDINE 20MG VIAL IV PRN (08:00)
[2023-06-16] MEDS ORDERED: ACETAMINOPHEN 325 MG TAB PO PRN (08:00)
[2023-06-16] MEDS ORDERED: NITROGLYCERIN 0.4 MG SL TAB SL PRN (08:00)
[2023-06-16 08:31] LABS: CHOLESTEROL 140 mg/dL (<200); HDL CHOLESTEROL 63 mg/dL (29-71); LDL DIRECT 65 mg/dL (0-99); TRIGLYCERIDES 75 mg/dL (30-200)
[2023-06-16 08:32] LABS: HEMOGLOBIN A1C 5.2 % (4.0-6.0)
[2023-06-16] MEDS: ASPIRIN 81MG CHEW TAB PO SCH (09:41)
[2023-06-16] MEDS: ENOXAPARIN SODIUM 40 MG/0.4 ML SYRINGE SQ SCH (09:42)
[2023-06-16] MEDS: 0.9%NACL 1000ML 1,000 ML IV SCH (09:42)
[2023-06-16] MEDS ORDERED: ROCURONIUM BROMIDE 10MG/1ML 5ML VL IV ONE (12:17)
[2023-06-16] MEDS ORDERED: PHARMACY COMMUNICATION MISC PRN (15:30)
[2023-06-16] MEDS ORDERED: LORAZEPAM 2 MG/ML 1 ML VIAL IVP PRN (15:30)
[2023-06-16 20:00] VITALS: BP 113/65; PULSE 104; RESP 16
[2023-06-17] VITALS (8 sets, daily range): BP systolic 89–135; BP diastolic 61–83; PULSE 60–119; RESP 17–20; O2SAT 100
[2023-06-17] MEDS ORDERED: ALBUMIN (HUMAN) 25% 100 ML IV PRN (01:30)
[2023-06-17] MEDS ORDERED: 0.9% NACL 500ML IV.SOLN 500 ML IV SCH (01:30)
[2023-06-17] MEDS: ALBUMIN (HUMAN) 25% 100 ML IV ONE (02:24)
[2023-06-17] MEDS: CHLORDIAZEPOXIDE HCL 25 MG CAP PO PRN (02:57)
[2023-06-17] MEDS ORDERED: COMPOUND IV REFRIGERATED 1 EACH IVSOLN MISC PRN (12:00)
[2023-06-17] MEDS ORDERED: COMPOUND IV MISC 1 EACH IVSOLN MISC PRN (12:00)
[2023-06-17] MEDS: THIAMINE HCL 100 MG, FOLIC ACID 1 MG, M.V.I. IV [ADULT] 10 ML in 0.9%NACL 1000ML 1,000 ML IV SCH (14:29)
[2023-06-18] VITALS (9 sets, daily range): BP systolic 95–135; BP diastolic 54–81; PULSE 83–121; RESP 18–28; O2SAT 96–100
[2023-06-18] MEDS: LORAZEPAM 2 MG/ML 1 ML VIAL IVP PRN (02:42)
[2023-06-18 04:16] LABS: HEMATOCRIT 37.5 % (42-54); MEAN CORPUSCULAR HEMOGLOBIN 32.1 pg (27.0-33.0); MEAN CORPUSCULAR HGB CONC 34.1 g/dL (32.0-36.0); RED BLOOD CELL COUNT(AUTO) 3.99 MIL/uL (4.50-6.20); RED CELL DISTRIBUTION WIDTH 13.4 % (11.0-15.5); WHITE BLOOD COUNT (AUTO) 7.7 K/uL (4.8-10.8)
[2023-06-18 04:46] LABS: ALBUMIN 2.3 g/dL (3.5-5.0); BILIRUBIN,DIRECT 0.1 mg/dL (0.0-0.3); BILIRUBIN,TOTAL 0.4 mg/dL (0.2-1.0); CREATININE 0.9 mg/dL (0.5-1.3); POTASSIUM 3.7 mmol/L (3.5-5.1); TOTAL PROTEIN, SERUM 5.2 g/dL (6.0-8.3)
[2023-06-18] MEDS: KCL 20 MEQ ERTAB PO ONE (12:43)
[2023-06-18 14:27] LABS: THYROID STIMULATING HORMONE 2.23 uIU/mL (0.36-3.74)
[2023-06-18] MEDS: DILTIAZEM 60MG TAB PO SCH (18:19)
[2023-06-19] VITALS (51 sets, daily range): BP systolic 75–155; BP diastolic 36–114; PULSE 71–140; RESP 20–60; O2SAT 96–100
[2023-06-19 05:50] LABS: HEMATOCRIT 37.8 % (42-54); MEAN CORPUSCULAR HEMOGLOBIN 31.3 pg (27.0-33.0); MEAN CORPUSCULAR HGB CONC 33.9 g/dL (32.0-36.0); MEAN CORPUSCULAR VOLUME 92.4 fL (79-99); RED BLOOD CELL COUNT(AUTO) 4.09 MIL/uL (4.50-6.20); RED CELL DISTRIBUTION WIDTH 13.6 % (11.0-15.5); WHITE BLOOD COUNT (AUTO) 9.4 K/uL (4.8-10.8)
[2023-06-19 05:56] LABS: CREATININE 0.9 mg/dL (0.5-1.3); POTASSIUM 4.4 mmol/L (3.5-5.1)
[2023-06-19] MEDS ORDERED: LEVETIRACETAM 500 MG/5 ML SD VIAL IV STA (16:04)
[2023-06-19] MEDS: ONDANSETRON 4MG INJ IV PRN (16:10)
[2023-06-19 16:16] LABS: HEMATOCRIT 41.2 % (42-54); MEAN CORPUSCULAR HGB CONC 34.2 g/dL (32.0-36.0); MEAN CORPUSCULAR VOLUME 93.4 fL (79-99); RED BLOOD CELL COUNT(AUTO) 4.41 MIL/uL (4.50-6.20); RED CELL DISTRIBUTION WIDTH 13.8 % (11.0-15.5); WHITE BLOOD COUNT (AUTO) 10.6 K/uL (4.8-10.8)
[2023-06-19 16:25] LABS: CREATININE 1.1 mg/dL (0.5-1.3)
[2023-06-19 16:29] LABS: ABG BASE EXCESS -5.9 mmol/L (-2.0-3.0); ABG HCO3 16.6 mmol/L (21.0-28.0); ABG OXYGEN SATURATION 96.1 % (95.0-99.0); ABG PCO2 25 mmHg (35-48); ABG PH 7.436 (7.350-7.450); CARBON MONOXIDE 0.5; HHb 3.9; PO2, ARTERIAL BG 84.9 mmHg (83.0-108.0); VENT MODE, BG NRBM (ROOM AIR)
[2023-06-19 16:30] LABS: BILIRUBIN,TOTAL 0.4 mg/dL (0.2-1.0); MAGNESIUM 1.8 mg/dL (1.80-2.40); TOTAL PROTEIN, SERUM 6.5 g/dL (6.0-8.3)
[2023-06-19] MEDS: FUROSEMIDE 40MG VIAL IV SCH (16:30)
[2023-06-19] MEDS: LEVETIRACETAM 1,000 MG in 0.9%NACL 100ML 100 ML IV ONE (16:37)
[2023-06-19] MEDS: FUROSEMIDE 40MG VIAL IV ONE ×2 (16:38→20:56)
[2023-06-19] MEDS: SOLU-MEDROL 125MG VIAL IVP ONE (16:39)
[2023-06-19] MEDS: DEXMEDETOMIDINE 400MCG/NS100ML IV STA (16:49)
[2023-06-19] MEDS: PHENYLEPHRINE HCL 10 MG in 0.9% NACL 250ML 250 ML IV PRN (17:20)
[2023-06-19] MEDS: MIDAZOLAM 50MG-0.9% NS 50ML 50 ML IV SCH (17:36)
[2023-06-19] MEDS: FENTANYL 2500MCG+NS 250ML 250 ML IV SCH (17:40)
[2023-06-19] MEDS: MIDAZOLAM HCL 1 MG/ML 2ML VIAL ONE (18:15)
[2023-06-19] MEDS: IPRATROPIUM/ALBUTEROL SULFATE 3 ML SOLUTION IH SCH (19:19)
[2023-06-19] MEDS: BUDESONIDE 0.5 MG/2 ML INH IH SCH (19:19)
[2023-06-19 19:30] LABS: ABG PCO2 35 mmHg (35-48); ABG PH 7.335 (7.350-7.450)
[2023-06-19] MEDS ORDERED: VASOPRESSIN 40 UNITS in 0.9%NACL 50ML 40 ML IV SCH (19:30)
[2023-06-19 19:31] LABS: ABG BASE EXCESS -6.7 mmol/L (-2.0-3.0); ABG HCO3 18.3 mmol/L (21.0-28.0); ABG OXYGEN SATURATION 99.1 % (95.0-99.0); CARBON MONOXIDE 0.3; HHb 0.9; PO2, ARTERIAL BG 204.4 mmHg (83.0-108.0); VENT MODE, BG AC VC (ROOM AIR)
[2023-06-19] MEDS: VASOPRESSIN 20 UNITS in 0.9%NACL 100ML 99 ML IV PRN (19:48)
[2023-06-19] MEDS: SODIUM BICARB 50MEQ 50ML VIAL IV ONE (20:57)
[2023-06-19] MEDS: MONTELUKAST SODIUM 10 MG TAB PO SCH (21:55)
[2023-06-19] MEDS: CHLORDIAZEPOXIDE HCL 25 MG CAP PO SCH (21:55)
[2023-06-19] MEDS: SOLU-MEDROL 40MG VIAL IVP SCH (21:55)
[2023-06-19] MEDS: THIAMINE HCL 100 MG/ML 2ML VIAL IVP ONE (21:55)
[2023-06-20] VITALS (105 sets, daily range): BP systolic 93–126; BP diastolic 49–83; PULSE 77–112; RESP 9–27; O2SAT 93–100
[2023-06-20 04:32] LABS: BASOPHILS # (AUTO) 0.01 K/uL (0.00-0.20); BASOPHILS % (AUTO) 0.1 % (0.0-5.0); HEMATOCRIT 42.7 % (42-54); IMMATURE GRANULOCYTE ABSOLUTE 0.08 K/uL (0-1); LYMPHOCYTES # (AUTO) 0.6 K/uL (1.0-4.8); LYMPHOCYTES % (AUTO) 5.6 % (21.0-51.0); MEAN CORPUSCULAR HEMOGLOBIN 31.6 pg (27.0-33.0); MEAN CORPUSCULAR HGB CONC 33.5 g/dL (32.0-36.0); MEAN CORPUSCULAR VOLUME 94.3 fL (79-99); MONOCYTES # (AUTO) 0.2 K/uL (0.1-1.0); NEUTROPHILS # (AUTO) 10.5 K/uL (1.8-7.7); NEUTROPHILS % (AUTO) 91.6 % (40.0-77.0); PLATELET COUNT (AUTO) 418 K/uL (130-400); RED BLOOD CELL COUNT(AUTO) 4.53 MIL/uL (4.50-6.20); RED CELL DISTRIBUTION WIDTH 13.7 % (11.0-15.5); WHITE BLOOD COUNT (AUTO) 11.5 K/uL (4.8-10.8)
[2023-06-20 04:49] LABS: ALBUMIN 3.1 g/dL (3.5-5.0); BILIRUBIN,TOTAL 0.6 mg/dL (0.2-1.0); CREATININE 1.1 mg/dL (0.5-1.3); POTASSIUM 4.2 mmol/L (3.5-5.1); TOTAL PROTEIN, SERUM 6.6 g/dL (6.0-8.3)
[2023-06-20 05:01] LABS: ABG BASE EXCESS -1.4 mmol/L (-2.0-3.0); ABG HCO3 22.1 mmol/L (21.0-28.0); ABG OXYGEN SATURATION 99.2 % (95.0-99.0); ABG PCO2 34 mmHg (35-48); ABG PH 7.432 (7.350-7.450); CARBON MONOXIDE 0.2; HHb 0.8; PO2, ARTERIAL BG 224.8 mmHg (83.0-108.0); VENT MODE, BG AC VC (ROOM AIR)
[2023-06-20 05:31] LABS: B-TYPE NATRIURETIC PEPTIDE 3880 pg/mL (0-100)
[2023-06-20] MEDS: THIAMINE HCL 100 MG/ML 2ML VIAL IV SCH ×2 (08:57→18:26)
[2023-06-20] MEDS ORDERED: FOLIC ACID 5 MG/ML VIAL IV SCH (09:00)
[2023-06-20] MEDS ORDERED: DEXMEDETOMIDINE 400MCG/NS100ML IV SCH (10:00)
[2023-06-20] MEDS: FOLIC ACID 5 MG/ML VIAL IV SCH (10:18)
[2023-06-20] MEDS: DEXMEDETOMIDINE 400MCG/NS100ML IV SCH (10:18)
[2023-06-20] MEDS: DIAZEPAM 5 MG TABLET PO SCH (15:06)
[2023-06-21] VITALS (134 sets, daily range): BP systolic 84–123; BP diastolic 31–71; PULSE 79–111; RESP 17–24; O2SAT 91–99
[2023-06-21] MEDS: ACETAMINOPHEN 325 MG TAB PO PRN (00:49)
[2023-06-21 01:32] LABS: MEAN CORPUSCULAR VOLUME 91.3 fL (79-99); RED BLOOD CELL COUNT(AUTO) 4.82 MIL/uL (4.50-6.20); RED CELL DISTRIBUTION WIDTH 13.5 % (11.0-15.5); WHITE BLOOD COUNT (AUTO) 22.6 K/uL (4.8-10.8)
[2023-06-21 01:40] LABS: POTASSIUM 3.8 mmol/L (3.5-5.1)
[2023-06-21 06:15] LABS: ABG BASE EXCESS 3.4 mmol/L (-2.0-3.0); ABG HCO3 28.2 mmol/L (21.0-28.0); ABG OXYGEN SATURATION 94.4 % (95.0-99.0); ABG PCO2 43 mmHg (35-48); ABG PH 7.432 (7.350-7.450); PO2, ARTERIAL BG 69.7 mmHg (83.0-108.0); VENT MODE, BG AC (ROOM AIR)
[2023-06-21] MEDS: MIDODRINE HCL 5 MG TABLET PO PRN (08:54)
[2023-06-21] MEDS: CHLORHEXIDINE GLUCONATE 15 ML MOUTHWASH MM SCH (12:16)
[2023-06-21 15:32] LABS: INR 1.01 (0.85-1.15); PROTHROMBIN TIME 11.9 SEC (9.6-11.6)
[2023-06-21 15:33] LABS: PARTIAL THROMBOPLASTIN TIME 29.1 SEC (26.3-35.5)
[2023-06-21] MEDS: SOLU-MEDROL 40MG VIAL IVP SCH (19:15)
[2023-06-21] MEDS: ZOSYN 3.375GM +NS 50ML IV SCH (21:52)
[2023-06-21] MEDS: ARTIFICIAL TEARS 3.5 GM OINTMENT OU SCH (21:53)
[2023-06-22] VITALS (139 sets, daily range): BP systolic 51–150; BP diastolic 28–92; PULSE 68–148; RESP 6–37; O2SAT 96–99
[2023-06-22 00:33] LABS: APPEARANCE,URINE CLEAR (CLEAR); BILIRUBIN,URINE NEGATIVE (NEGATIVE); COLOR,URINE YELLOW (YELLOW); GLUCOSE, URINE (UA) NEGATIVE (NEGATIVE); KETONES,URINE NEGATIVE (NEGATIVE); LEUKOCYTE ESTERASE ,URINE NEGATIVE Leu/uL (NEGATIVE); NITRATE,URINE NEGATIVE (NEGATIVE); OCCULT BLOOD,URINE NEGATIVE (NEGATIVE); PH,URINE 6.5 (5.0-8.0); PROTEIN,URINE 20 mg/dL (NEGATIVE); UROBILINOGEN,URINE 0.2 mg/dL (0.2-1.0)
[2023-06-22 00:36] LABS: SARS-CoV-2, RNA, NAAT NEGATIVE SARS CoV-2 (NEGATIVE)
[2023-06-22 00:43] LABS: INFLUENZA TYPE A NEGATIVE FOR TYPE A (NEG); INFLUENZA TYPE B NEGATIVE FOR TYPE B (NEG)
[2023-06-22 01:01] LABS: BACTERIA,URINE None Seen /HPF (None Seen); RBC,URINE 0-1 /HPF (0-1); WBC,URINE 0-1 /HPF (0-1)
[2023-06-22 01:02] LABS: SQUAMOUS EPITHELIAL CELL,UR Rare /HPF (0-2)
[2023-06-22 02:05] LABS: HEMATOCRIT 44.7 % (42-54)
[2023-06-22] MEDS: FENTANYL 2500MCG+NS 250ML 250 ML IV PRN (03:42)
[2023-06-22] MEDS: FUROSEMIDE 40MG VIAL IV SCH (05:38)
[2023-06-22] MEDS ORDERED: ZIPRASIDONE HCL 20 MG CAPSULE PO PRN (10:30)
[2023-06-22] MEDS ORDERED: VANCOMYCIN PROTOCOL PER PHARMACY IV SCH (10:30)
[2023-06-22 11:00] LABS: BASOPHILS # (AUTO) 0.02 K/uL (0.00-0.20); BASOPHILS % (AUTO) 0.1 % (0.0-5.0); HEMATOCRIT 42.4 % (42-54); IMMATURE GRANULOCYTE ABSOLUTE 0.12 K/uL (0-1); LYMPHOCYTES # (AUTO) 0.6 K/uL (1.0-4.8); LYMPHOCYTES % (AUTO) 3.6 % (21.0-51.0); MEAN CORPUSCULAR HEMOGLOBIN 32.2 pg (27.0-33.0); MEAN CORPUSCULAR HGB CONC 34.9 g/dL (32.0-36.0); MEAN CORPUSCULAR VOLUME 92.4 fL (79-99); MONOCYTES # (AUTO) 1.3 K/uL (0.1-1.0); MONOCYTES % (AUTO) 7.7 % (3.0-13.0); NEUTROPHILS # (AUTO) 14.8 K/uL (1.8-7.7); NEUTROPHILS % (AUTO) 87.9 % (40.0-77.0); PLATELET COUNT (AUTO) 364 K/uL (130-400); RED BLOOD CELL COUNT(AUTO) 4.59 MIL/uL (4.50-6.20); RED CELL DISTRIBUTION WIDTH 13.2 % (11.0-15.5); WHITE BLOOD COUNT (AUTO) 16.8 K/uL (4.8-10.8)
[2023-06-22 11:08] LABS: CREATININE 0.7 mg/dL (0.5-1.3); POTASSIUM 3.7 mmol/L (3.5-5.1)
[2023-06-22] MEDS: CEFEPIME HCL 1 GM VIAL IVPB SCH (11:08)
[2023-06-22] MEDS: ZIPRASIDONE MESYLATE 20 MG/VIAL IM ONE (11:08)
[2023-06-22 11:13] LABS: ALBUMIN 2.1 g/dL (3.5-5.0); BILIRUBIN,TOTAL 0.7 mg/dL (0.2-1.0); TOTAL PROTEIN, SERUM 5.8 g/dL (6.0-8.3)
[2023-06-22] MEDS: ZIPRASIDONE MESYLATE 20 MG/VIAL IM PRN (11:16)
[2023-06-22] MEDS: DIAZEPAM 5 MG TABLET PO SCH (12:30)
[2023-06-22] MEDS: VANCOMYCIN 1G/250ML KIT 250 ML IV SCH (13:14)
[2023-06-22] MEDS: TAMSULOSIN HCL 0.4 MG CAP.ER.24H PO SCH (20:15)
[2023-06-22] MEDS: DIAZEPAM 5 MG TABLET PO PRN (20:22)
[2023-06-22] MEDS: LORAZEPAM 2 MG/ML 1 ML VIAL IVP PRN (21:11)
[2023-06-23] VITALS (78 sets, daily range): BP systolic 88–176; BP diastolic 42–97; PULSE 68–138; RESP 10–38; O2SAT 93–100
[2023-06-23] MEDS: METOPROLOL TARTRATE 1 MG/ML 5ML VIAL IV SCH (00:30)
[2023-06-23 05:07] LABS: BASOPHILS # (AUTO) 0.02 K/uL (0.00-0.20); BASOPHILS % (AUTO) 0.1 % (0.0-5.0); HEMATOCRIT 38.9 % (42-54); IMMATURE GRANULOCYTE ABSOLUTE 0.12 K/uL (0-1); LYMPHOCYTES # (AUTO) 0.6 K/uL (1.0-4.8); LYMPHOCYTES % (AUTO) 3.8 % (21.0-51.0); MEAN CORPUSCULAR HEMOGLOBIN 31.3 pg (27.0-33.0); MEAN CORPUSCULAR VOLUME 89.6 fL (79-99); MONOCYTES # (AUTO) 1.3 K/uL (0.1-1.0); NEUTROPHILS # (AUTO) 13.9 K/uL (1.8-7.7); NEUTROPHILS % (AUTO) 87.3 % (40.0-77.0); PLATELET COUNT (AUTO) 350 K/uL (130-400); RED BLOOD CELL COUNT(AUTO) 4.34 MIL/uL (4.50-6.20); RED CELL DISTRIBUTION WIDTH 13.1 % (11.0-15.5); WHITE BLOOD COUNT (AUTO) 15.9 K/uL (4.8-10.8)
[2023-06-23 05:30] LABS: ALBUMIN 2.9 g/dL (3.5-5.0); BILIRUBIN,TOTAL 0.6 mg/dL (0.2-1.0); CREATININE 0.8 mg/dL (0.5-1.3); POTASSIUM 3.6 mmol/L (3.5-5.1); TOTAL PROTEIN, SERUM 6.6 g/dL (6.0-8.3)
[2023-06-23] MEDS: DIAZEPAM 5 MG/ML 2 ML SYG IVP SCH (17:43)
[2023-06-24] VITALS (52 sets, daily range): BP systolic 83–153; BP diastolic 36–98; PULSE 68–115; RESP 13–42; O2SAT 94–98
[2023-06-24 04:21] LABS: BASOPHILS # (AUTO) 0.01 K/uL (0.00-0.20); BASOPHILS % (AUTO) 0.1 % (0.0-5.0); EOSINOPHILS # (AUTO) 0.02 K/uL (0.00-0.70); EOSINOPHILS % (AUTO) 0.1 % (0.0-8.0); HEMATOCRIT 43.5 % (42-54); IMMATURE GRANULOCYTE ABSOLUTE 0.06 K/uL (0-1); LYMPHOCYTES # (AUTO) 2.2 K/uL (1.0-4.8); LYMPHOCYTES % (AUTO) 15.6 % (21.0-51.0); MEAN CORPUSCULAR HEMOGLOBIN 31.6 pg (27.0-33.0); MEAN CORPUSCULAR VOLUME 92.9 fL (79-99); MONOCYTES # (AUTO) 1.1 K/uL (0.1-1.0); MONOCYTES % (AUTO) 7.9 % (3.0-13.0); NEUTROPHILS # (AUTO) 10.8 K/uL (1.8-7.7); NEUTROPHILS % (AUTO) 75.9 % (40.0-77.0); PLATELET COUNT (AUTO) 369 K/uL (130-400); RED BLOOD CELL COUNT(AUTO) 4.68 MIL/uL (4.50-6.20); WHITE BLOOD COUNT (AUTO) 14.2 K/uL (4.8-10.8)
[2023-06-24 04:33] LABS: ALBUMIN 2.8 g/dL (3.5-5.0); BILIRUBIN,TOTAL 0.7 mg/dL (0.2-1.0); CREATININE 0.9 mg/dL (0.5-1.3); POTASSIUM 3.4 mmol/L (3.5-5.1); TOTAL PROTEIN, SERUM 6.8 g/dL (6.0-8.3)
[2023-06-24] MEDS: PANTOPRAZOLE 40 MG/VIAL IVP SCH (09:10)
[2023-06-24] MEDS ORDERED: METOPROLOL TARTRATE 1 MG/ML 5ML VIAL IV PRN (10:00)
[2023-06-24] MEDS: POTASSIUM CHLORIDE 20MEQ/100ML 100 ML IV PRN (15:10)
[2023-06-24] MEDS ORDERED: FUROSEMIDE 40MG VIAL IV SCH (16:30)
[2023-06-24] MEDS: FUROSEMIDE 20MG VIAL IV SCH (17:00)
[2023-06-24] MEDS: CLONIDINE HCL 0.1 MG TABLET PO SCH (23:28)
[2023-06-24] MEDS: NICOTINE 21 MG/ 24 HR PATCH TD SCH (23:28)
[2023-06-25] VITALS (32 sets, daily range): BP systolic 81–132; BP diastolic 35–93; PULSE 71–131; RESP 11–40; O2SAT 97–100
[2023-06-25 05:18] LABS: BASOPHILS # (AUTO) 0.01 K/uL (0.00-0.20); BASOPHILS % (AUTO) 0.1 % (0.0-5.0); EOSINOPHILS # (AUTO) 0.01 K/uL (0.00-0.70); EOSINOPHILS % (AUTO) 0.1 % (0.0-8.0); HEMATOCRIT 42.6 % (42-54); IMMATURE GRANULOCYTE ABSOLUTE 0.04 K/uL (0-1); LYMPHOCYTES # (AUTO) 1.5 K/uL (1.0-4.8); LYMPHOCYTES % (AUTO) 14.8 % (21.0-51.0); MEAN CORPUSCULAR HEMOGLOBIN 31.3 pg (27.0-33.0); MEAN CORPUSCULAR HGB CONC 33.8 g/dL (32.0-36.0); MEAN CORPUSCULAR VOLUME 92.6 fL (79-99); MONOCYTES # (AUTO) 0.8 K/uL (0.1-1.0); NEUTROPHILS # (AUTO) 7.8 K/uL (1.8-7.7); NEUTROPHILS % (AUTO) 76.6 % (40.0-77.0); PLATELET COUNT (AUTO) 345 K/uL (130-400); RED CELL DISTRIBUTION WIDTH 12.9 % (11.0-15.5); WHITE BLOOD COUNT (AUTO) 10.2 K/uL (4.8-10.8)
[2023-06-25 05:43] LABS: BILIRUBIN,TOTAL 0.8 mg/dL (0.2-1.0); CREATININE 0.8 mg/dL (0.5-1.3)
[2023-06-25] MEDS ORDERED: NICOTINE 21 MG/ 24 HR PATCH TD SCH (09:00)
[2023-06-25] MEDS ORDERED: OLANZAPINE 10MG/ML 1ML VIAL IM SCH (14:00)
[2023-06-25] MEDS: OLANZAPINE 10MG/ML 1ML VIAL IM ONE (14:18)
[2023-06-25] MEDS: FUROSEMIDE 40 MG TABLET PO SCH (15:57)
[2023-06-25] MEDS: METOPROLOL TARTRATE 25 MG TAB PO SCH (15:57)
[2023-06-25] MEDS: VANCOMYCIN 1G/250ML KIT 250 ML IV SCH (21:13)
[2023-06-25] MEDS: METOPROLOL TARTRATE 1 MG/ML 5ML VIAL IV ONE (23:26)
[2023-06-26] VITALS (9 sets, daily range): BP systolic 102–121; BP diastolic 63–81; PULSE 91–134; RESP 18–29; O2SAT 96–98
[2023-06-26 04:22] LABS: BASOPHILS # (AUTO) 0.02 K/uL (0.00-0.20); BASOPHILS % (AUTO) 0.1 % (0.0-5.0); EOSINOPHILS # (AUTO) 0.29 K/uL (0.00-0.70); EOSINOPHILS % (AUTO) 1.8 % (0.0-8.0); HEMATOCRIT 47.8 % (42-54); IMMATURE GRANULOCYTE ABSOLUTE 0.12 K/uL (0-1); LYMPHOCYTES # (AUTO) 2.7 K/uL (1.0-4.8); MEAN CORPUSCULAR HEMOGLOBIN 31.9 pg (27.0-33.0); MEAN CORPUSCULAR HGB CONC 33.9 g/dL (32.0-36.0); MEAN CORPUSCULAR VOLUME 94.1 fL (79-99); MONOCYTES # (AUTO) 1.4 K/uL (0.1-1.0); MONOCYTES % (AUTO) 8.9 % (3.0-13.0); NEUTROPHILS # (AUTO) 11.5 K/uL (1.8-7.7); NEUTROPHILS % (AUTO) 71.5 % (40.0-77.0); PLATELET COUNT (AUTO) 391 K/uL (130-400); RED BLOOD CELL COUNT(AUTO) 5.08 MIL/uL (4.50-6.20); RED CELL DISTRIBUTION WIDTH 12.8 % (11.0-15.5)
[2023-06-26 04:52] LABS: ALBUMIN 3.1 g/dL (3.5-5.0); BILIRUBIN,TOTAL 0.6 mg/dL (0.2-1.0); POTASSIUM 3.7 mmol/L (3.5-5.1); TOTAL PROTEIN, SERUM 7.2 g/dL (6.0-8.3)
[2023-06-26] MEDS ORDERED: POTASSIUM CHLORIDE 20MEQ/100ML 100 ML IV PRN (06:00)
[2023-06-26] MEDS ORDERED: POTASSIUM CHLORIDE 10% ELIXIR 20 MEQ/15 ML UDCUP PO PRN (06:00)
[2023-06-26] MEDS: KCL 20 MEQ ERTAB PO PRN (06:39)
[2023-06-26] MEDS: PANTOPRAZOLE 40 MG TAB DR PO SCH (09:19)
[2023-06-26] MEDS: PREDNISONE 20 MG TABLET PO SCH (09:20)
== END 2023-06-26 17:45 | disposition left against medical advice (07) | DRG 917 ==
LOC: EDH 01:04 → EDHIP 01:05 → OBSVTOIN 01:05 → 4CH 15:50 → 2CV 06-19 17:05 → 2CH 06-19 18:09 → 2AH 06-26 01:08
PROVIDERS: ADMIT Hospitalist; ATTEND Hospitalist
PROC: 0BH17EZ Insertion of Endotracheal Airway into Trachea, Via Natural or Artificial Opening (ICD-10-PCS; principal; 2023-06-19)
PROC: 5A1945Z Respiratory Ventilation, 24-96 Consecutive Hours (ICD-10-PCS; 2023-06-19)
PROC: 4A00X4Z Measurement of Central Nervous Electrical Activity, External Approach (ICD-10-PCS; 2023-06-20)
PROC: 02HV33Z Insertion of Infusion Device into Superior Vena Cava, Percutaneous Approach (ICD-10-PCS; 2023-06-21)
PROC: B548ZZA Ultrasonography of Superior Vena Cava, Guidance (ICD-10-PCS; 2023-06-21)
DX: T40.5X1A Poisoning by cocaine, accidental (unintentional), initial encounter (principal); G92.8 Other toxic encephalopathy; I21.4 Non-ST elevation (NSTEMI) myocardial infarction; I50.43 Acute on chronic combined systolic (congestive) and diastolic (congestive) heart failure; R57.0 Cardiogenic shock; J69.0 Pneumonitis due to inhalation of food and vomit; J96.01 Acute respiratory failure with hypoxia; E87.1 Hypo-osmolality and hyponatremia; E44.1 Mild protein-calorie malnutrition; I42.6 Alcoholic cardiomyopathy; I42.7 Cardiomyopathy due to drug and external agent; J44.1 Chronic obstructive pulmonary disease with (acute) exacerbation; Z59.02 Unsheltered homelessness; Z20.822 Contact with and (suspected) exposure to COVID-19; R56.9 Unspecified convulsions; E11.65 Type 2 diabetes mellitus with hyperglycemia; F41.9 Anxiety disorder, unspecified; I08.1 Rheumatic disorders of both mitral and tricuspid valves; F10.10 Alcohol abuse, uncomplicated; I11.0 Hypertensive heart disease with heart failure; F19.10 Other psychoactive substance abuse, uncomplicated; I48.91 Unspecified atrial fibrillation; K76.0 Fatty (change of) liver, not elsewhere classified; Z82.49 Family history of ischemic heart disease and other diseases of the circulatory system; Z86.61 Personal history of infections of the central nervous system; Y92.89 Other specified places as the place of occurrence of the external cause; Z91.148 Patient's other noncompliance with medication regimen for other reason
CPT/HCPCS: 31500; 36415; 36600; 71045; 74018; 76705; 80048; 80053; 80061; 80076; 80202; 80305; 81001; 82435; 82550; 82803; 82947; 82948; 83036; 83605; 83690; 83735; 83880; 84132; 84145; 84146; 84295; 84439; 84443; 84484; 85014; 85018; 85025; 85027; 85378; 85610; 85730; 87040; 87071; 87205; 87635; 87804; 93005; 93306; 94002; 94003; 94640; 94664; 96375; A4344; C1894; C9113; G0378; J0692; J1650; J1940; J1953; J2060; J2250; J2371; J2405; J2543; J2919; J2920; J3010; J3360; J3370; J3411; J3480; J3486; J3490; J7030; J7050; J7120; P9046; A9900